=== PATIENT | male | born 1965 | race African-American/Black ===

== ENCOUNTER 2020-02-06 10:14 | Observation (INO) ==
[2020-02-06] MEDS ORDERED: ASPIRIN CHEW 81 MG TABLET PO STA (10:38)
[2020-02-06 10:48] LABS: Basophils % 0.5 % (0.0-0.8); Eosinophils # 0.2 10*3/uL (0.0-0.87); Eosinophils % 1.8 % (0.00-10.9); Hematocrit 41.3 VOL% (42.0-52.0); Hemoglobin 13.8 GM/DL (14.0-18.0); Immature Granulocytes % 0.4 %; Immature Granulocytes Absolute 0.03 #; Lymphocytes # 2.7 10*3/uL (1.4-4.0); Lymphocytes % 32.5 % (21.2-54.2); Mean Corpuscular HGB Conc 33.4 GM/DL (32-36); Mean Corpuscular Volume 91.6 FL (87-102); Mean Platelet Volume 8.9 FL (9.6-12.0); Monocytes % 5.4 % (1.7-12.7); Neutrophils % 59.4 % (38.7-73.9); Platelet Count 304 T/CUMM (130-400); Red Blood Count 4.51 MC/CUMM (3.8-5.5); Red Cell Distribution Width 13.4 % (9.3-17.3); White Blood Count 8.4 T/CUMM (4-12)
[2020-02-06 11:09] LABS: Alanine Aminotransferase 37 U/L (16-61); Alkaline Phosphatase 85 U/L (45-117); Aspartate Amino Transferase 28 U/L (0-37); Bilirubin,Total < 0.39 MG/DL (0.2-1.0); Blood Urea Nitrogen 24 MG/DL (7-18); Calcium 9.3 MG/DL (8.5-10.1); Estimated Glom Filtration Rate 50 ML/MIN; Glucose 112 MG/DL (74-106); Osmolality,Calculated 285.3 MOS/KG (273-304); Total Protein 7.5 G/DL (6.4-8.3)
[2020-02-06] MEDS ORDERED: ONDANSETRON 4 MG/2 ML VIAL IV PRN (11:25)
[2020-02-06] MEDS ORDERED: GLUCAGON 1 MG VIAL IM PRN (11:25)
[2020-02-06] MEDS ORDERED: DEXTROSE 50% 25 GM/50 ML VIAL IV PRN (11:25)
[2020-02-06] MEDS ORDERED: ACETAMINOPHEN 325 MG TABLET PO PRN (11:25)
[2020-02-06] MEDS ORDERED: ENOXAPARIN 40 MG/0.4 ML SYRINGE SUBCUT SCH (11:30)
[2020-02-06] MEDS ORDERED: hydrALAZINE 20 MG/1 ML VIAL IV PRN (13:40)
[2020-02-06] MEDS ORDERED: MAGNESIUM SULF RIDER 4 GM in PREMIX 1 EACH IV ONE (17:26)
[2020-02-06] MEDS: carvediloL 6.25 MG TABLET PO SCH (20:43)
[2020-02-06] MEDS ORDERED: ROSUVASTATIN 10 MG TABLET PO SCH (21:00)
[2020-02-07 06:37] LABS: Basophils % 0.4 % (0.0-0.8); Eosinophils # 0.2 10*3/uL (0.0-0.87); Eosinophils % 2.2 % (0.00-10.9); Hemoglobin 12.5 GM/DL (14.0-18.0); Immature Granulocytes % 0.1 %; Immature Granulocytes Absolute 0.01 #; Lymphocytes # 2.3 10*3/uL (1.4-4.0); Lymphocytes % 32.3 % (21.2-54.2); Mean Corpuscular HGB Conc 32.9 GM/DL (32-36); Mean Corpuscular Volume 91.8 FL (87-102); Mean Platelet Volume 9.3 FL (9.6-12.0); Monocytes % 5.8 % (1.7-12.7); Neutrophils % 59.2 % (38.7-73.9); Platelet Count 288 T/CUMM (130-400); Red Blood Count 4.14 MC/CUMM (3.8-5.5); Red Cell Distribution Width 13.4 % (9.3-17.3); White Blood Count 7.1 T/CUMM (4-12)
[2020-02-07 07:02] LABS: Calcium 8.8 MG/DL (8.5-10.1); Osmolality,Calculated 281.5 MOS/KG (273-304)
[2020-02-07 07:04] LABS: Risk Ratio 4.67; VLDL CHOLESTEROL 16.6 MG/DL
[2020-02-07] MEDS: carvediloL 6.25 MG TABLET PO SCH (08:16)
[2020-02-07] MEDS ORDERED: ASPIRIN CHEW 81 MG TABLET PO SCH (09:00)
[2020-02-07] MEDS ORDERED: POTASSIUM CHLORIDE 20 MEQ TABLET PO SCH (09:00)
[2020-02-07] MEDS ORDERED: MAGNESIUM OXIDE 400 MG TABLET PO SCH (09:00)
[2020-02-07 12:21] VITALS: BP 151/85
== END 2020-02-07 12:23 | disposition home or self-care (01) ==
LOC: N.ED 10:14 → N.EDINP 10:14 → N.TELEN 13:36
PROVIDERS: ADMIT Internal Medicine; ATTEND Internal Medicine